=== PATIENT | male | born 1980 | race African-American/Black ===

== ENCOUNTER 2020-12-28 12:44 | Outpatient (REF) | payer OTHER, SELFPAY ==
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
== END 2020-12-28 12:45 | disposition home or self-care (01) ==
LOC: HO.HMGCX 12:44
PROVIDERS: PCP Internal Medicine; Visit Provider Nurse Practitioner Family
DX: S99.922A Unspecified injury of left foot, initial encounter (principal); S39.92XA Unspecified injury of lower back, initial encounter; S14.109A Unspecified injury at unspecified level of cervical spinal cord, initial encounter; V89.2XXA Person injured in unspecified motor-vehicle accident, traffic, initial encounter
CPT/HCPCS: 72040; 72100; 73630